=== PATIENT | female | born 1970 | race African-American/Black ===

== ENCOUNTER 2022-10-03 13:34 | Emergency (ER) | payer SELFPAY ==
[~2022-10-03] VITALS: Ht 167.6 cm; Wt 111.1 kg
[2022-10-03 13:36] VITALS: BP 135/72
[2022-10-03] MEDS ORDERED: IBUPROFEN 600 MG TAB PO ONE (15:00)
[2022-10-03 15:47] LABS: APPEARANCE,URINE CLEAR (CLEAR); BILIRUBIN,URINE NEGATIVE (NEGATIVE); BLOOD, URINE TRACE-I (NEGATIVE); COLOR,URINE YELLOW (YELLOW); LEUKOCYTE ESTERASE ,URINE NEGATIVE (NEGATIVE); NITRITE, URINE NEGATIVE (NEGATIVE); UGLUCOSE NEGATIVE (NEGATIVE)
[2022-10-03 16:09] LABS: RBC,URINE 0-5 /HPF (0-5); WBC,URINE 0-5 /HPF (0-5)
[2022-10-03] MEDS ORDERED: IBUP-2213 PO (16:28)
[2022-10-03] MEDS ORDERED: LID5T TP (16:28)
--- NOTE | 2022-10-03 19:21 | NUR ---
Patient discharged with v/s stable. Written and verbal after care instructions given and explained. Patient verbalized understanding. Ambulatory with steady gait. All questions addressed prior to discharge. Advised to follow up with PMD.
== END 2022-10-03 19:21 | disposition home or self-care (01) ==
LOC: MED 13:34
DX: R07.89 Other chest pain (principal); E11.9 Type 2 diabetes mellitus without complications; E78.5 Hyperlipidemia, unspecified; Z79.899 Other long term (current) drug therapy
CPT/HCPCS: 36415; 71046; 81001; 84484; 87086; 93005; 99285